=== PATIENT | male | born 1945 | race Caucasian/White ===

== ENCOUNTER 2016-10-21 10:50 | Inpatient (IN) | payer MEDICARE, OTHER ==
[~2016-10-21] VITALS: Ht 180.3 cm; Wt 65.9 kg
[~2016-10-21 10:50] MED LIST: ASPIR-LOW81 MG PO; CLOPIDOGREL PO; LISINOPRIL10 MG PO
[2016-10-27] MEDS ORDERED: LIPITOR 40MG TA40 MG PO (08:25)
[2016-10-27] MEDS ORDERED: ELIQUIS 5MG PO (08:26)
[2016-10-27] MEDS ORDERED: MULTIPLE VITAMI1 CAP PO (08:27)
[2016-10-27] MEDS ORDERED: TOPROL XL 50MG50 MG PO (08:27)
[2016-10-27] MEDS ORDERED: BETAPACE 120MG120 MG PO (08:27)
[2016-10-27] MEDS ORDERED: RT SPIRIVA18 MCG IH (08:28)
[2016-10-27] MEDS ORDERED: NORCO 325 MG-51 TAB PO (08:29)
[2016-10-27] MEDS ORDERED: RESTORIL 1515 MG/CAP PO (08:29)
[2016-10-27] MEDS ORDERED: VENTOLIN0.09 MG IH (08:30)
[2016-10-27 08:54] LABS: BASO % 0.5 % (0.0-2.0); EOS # 0.2 (0.0-0.7); EOS % 3.4 % (0-4.0); GRAN # 3.3 (1.4-6.5); GRAN % 55.8 % (42.2-75.2); HEMATOCRIT 44.1 % (42.0-52.0); HEMOGLOBIN 15.2 g/dl (13.5-18.0); LYMPH # 1.5 (1.2-3.4); LYMPH % 25.1 % (20.0-51.0); MEAN CELL VOLUME 94 fl (80.0-100.0); MEAN CORPUSCULAR HEMOGLOBIN 32 pg (27.0-31.0); MEAN CORPUSCULAR HGB CONC 35 g/dl (33.0-37.0); MEAN PLATELET VOLUME 9.8 fl (7.4-10.4); MONO # 0.9 (0.1-0.6); MONO % 14.9 % (1.7-9.3); PLATELET COUNT 206 K/mm3 (130-400); RED BLOOD COUNT 4.71 M/mm3 (4.20-5.60); REDCELL DISTRIBUTION WIDTH-CV 12.2 % (11.5-14.5); WHITE BLOOD COUNT 5.9 K/mm3 (4.8-10.8)
[2016-10-27 08:55] VITALS: BP 129/76; PULSE 98; TEMP 97.9
[2016-10-27 09:11] LABS: ADJUSTED CALCIUM 9.1 mg/dL (8.4-10.2); ALBUMIN 4.1 gm/dL (3.5-5.0); CALCIUM 9.2 mg/dL (8.4-10.2); CREATININE, serum 0.8 mg/dL (0.66-1.25); MAGNESIUM 1.7 mg/dL (1.6-2.3); POTASSIUM 4.3 mmol/L (3.4-5.0); TOTAL PROTEIN 7.6 gm/dL (6.4-8.2)
[2016-10-27 09:13] LABS: INR 1.9 (0.8-3.0); PROTHROMBIN TIME 21.1 SECONDS (9.7-12.8)
[2016-10-27 11:39] VITALS: BP 118/67; PULSE 55; TEMP 98.7
[2016-10-27 15:32] VITALS: BP 138/92; PULSE 62; TEMP 97.8
[2016-10-27 20:59] VITALS: BP 141/92; PULSE 118; TEMP 98.5
[2016-10-28] VITALS (7 sets, daily range): BP systolic 111–155; BP diastolic 62–99; PULSE 53–114; TEMP 97.2–98.3
[2016-10-28 06:53] LABS: INR 2.9 (0.8-3.0); PROTHROMBIN TIME 33.7 SECONDS (9.7-12.8)
[2016-10-28 06:59] LABS: ADJUSTED CALCIUM 9.3 mg/dL (8.4-10.2); ALBUMIN 3.2 gm/dL (3.5-5.0); BILIRUBIN,TOTAL 1.1 mg/dL (0.0-1.0); CALCIUM 8.7 mg/dL (8.4-10.2); CREATININE, serum 0.72 mg/dL (0.66-1.25); POTASSIUM 3.9 mmol/L (3.4-5.0); TOTAL PROTEIN 6.3 gm/dL (6.4-8.2)
[2016-10-28 18:26] LABS: INR 1.7 (0.8-3.0); PROTHROMBIN TIME 19.3 SECONDS (9.7-12.8)
[2016-10-29 03:51] VITALS: BP 141/86; PULSE 108; TEMP 98
[2016-10-29 08:54] VITALS: BP 102/75; PULSE 89; TEMP 98
[2016-10-29 12:18] VITALS: BP 120/88; PULSE 111; TEMP 98.6
[2016-10-29 17:13] VITALS: BP 145/77; PULSE 115; TEMP 98
[2016-10-29 19:50] VITALS: BP 179/100; PULSE 107; TEMP 97.8
[2016-10-29 22:40] VITALS: BP 121/57; BP 154/97; PULSE 74; PULSE 86; TEMP 98.3
[2016-10-30 03:34] VITALS: BP 174/98; PULSE 103; TEMP 98.5
[2016-10-30 04:37] VITALS: BP 141/90
[2016-10-30 07:50] VITALS: BP 143/102; PULSE 105; TEMP 97.6
[2016-10-30 11:29] VITALS: BP 177/122; PULSE 102
[2016-10-30 15:32] VITALS: BP 152/95; PULSE 84; TEMP 98.4
[2016-10-30 21:06] VITALS: BP 159/106; PULSE 91; TEMP 97.5
[2016-10-31 00:23] VITALS: BP 112/72; PULSE 71; TEMP 97.8
[2016-10-31 04:30] VITALS: BP 111/78; PULSE 100; TEMP 97.6
[2016-10-31 08:18] VITALS: BP 127/77; PULSE 95; TEMP 97.2
[2016-10-31] MEDS ORDERED: NORVASC 10MG10 MG PO (10:40)
[2016-10-31] MEDS ORDERED: XARELTO20 MG PO (10:41)
[2016-10-31] MEDS ORDERED: PACERONE400 MG PO (10:43)
[2016-10-31] MEDS ORDERED: CORDARONE200 MG/TAB PO (10:43)
== END 2016-10-31 12:01 | disposition home or self-care (01) | DRG 260 ==
LOC: MEDICAL 10-27 05:42
PROVIDERS: Internal Medicine Cardiovascular Disease; Nurse Practitioner Family
PROC: 0JH602Z Insertion of Monitoring Device into Chest Subcutaneous Tissue and Fascia, Open Approach (ICD-10-PCS; principal; 2016-10-30)
DX: I48.0 Paroxysmal atrial fibrillation (principal); E43 Unspecified severe protein-calorie malnutrition; E87.1 Hypo-osmolality and hyponatremia; J44.9 Chronic obstructive pulmonary disease, unspecified; I10 Essential (primary) hypertension; F17.210 Nicotine dependence, cigarettes, uncomplicated; Z86.718 Personal history of other venous thrombosis and embolism; Z68.20 Body mass index [BMI] 20.0-20.9, adult
CPT/HCPCS: 99233-AI

== ENCOUNTER 2017-01-05 09:59 | Day surgery (SDC) | payer MEDICARE, OTHER ==
[2017-01-05] VITALS (7 sets, daily range): BP systolic 123–156; BP diastolic 70–97; PULSE 51–119; TEMP 98.2–98.5
[~2017-01-05] VITALS: Ht 180.3 cm; Wt 61.8 kg
[~2017-01-05 09:59] MED LIST changes: +BETAPACE 120MG120 MG PO; +CORDARONE200 MG/TAB PO; +ELIQUIS 5MG PO; +LIPITOR 40MG TA40 MG PO; +MULTIPLE VITAMI1 CAP PO; +NORCO 325 MG-51 TAB PO; +NORVASC 10MG10 MG PO; +PACERONE400 MG PO; +RESTORIL 1515 MG/CAP PO; +RT SPIRIVA18 MCG IH; +TOPROL XL 50MG50 MG PO; +VENTOLIN0.09 MG IH; +XARELTO20 MG PO
[2017-01-05 10:59] LABS: HEMATOCRIT 39.2 % (42.0-52.0); HEMOGLOBIN 13.5 g/dl (13.5-18.0); MEAN CELL VOLUME 96 fl (80.0-100.0); MEAN CORPUSCULAR HEMOGLOBIN 33 pg (27.0-31.0); MEAN CORPUSCULAR HGB CONC 34 g/dl (33.0-37.0); MEAN PLATELET VOLUME 9.3 fl (7.4-10.4); PLATELET COUNT 223 K/mm3 (130-400); RED BLOOD COUNT 4.09 M/mm3 (4.20-5.60); REDCELL DISTRIBUTION WIDTH-CV 13.4 % (11.5-14.5); WHITE BLOOD COUNT 6.6 K/mm3 (4.8-10.8)
[2017-01-05 11:08] LABS: INR 1.2 (0.8-3.0); PROTHROMBIN TIME 12.8 SECONDS (9.7-12.8)
[2017-01-05 11:16] LABS: CALCIUM 8.7 mg/dL (8.4-10.2); CREATININE, serum 0.67 mg/dL (0.66-1.25); POTASSIUM 4.2 mmol/L (3.4-5.0)
[2017-01-05] MEDS ORDERED: NORCO 325 MG-7.1 TAB PO (11:29)
[2017-01-05] MEDS ORDERED: ASPIRIN E.C. 8181 MG PO (11:31)
[2017-01-05] MEDS ORDERED: VITAMIN D31000 IU PO (11:32)
[2017-01-05] MEDS ORDERED: STIOLTO RESPIMAT4 GM IH (11:34)
[2017-01-05] MEDS ORDERED: NEURONTIN300 MG/CAP PO (11:36)
[2017-01-05] MEDS ORDERED: TRIAMCINOLONE A15 GM TP (11:37)
[2017-01-06 02:30] VITALS: BP 135/84; PULSE 74; TEMP 98.8
[2017-01-06 07:43] VITALS: BP 139/93; PULSE 97; TEMP 97.6
[2017-01-06 11:23] VITALS: BP 113/75; PULSE 107; TEMP 98.5
[2017-01-06] MEDS ORDERED: CEPHALEXIN500 M1 PO (13:05)
== END 2017-01-06 14:24 | disposition home or self-care (01) ==
LOC: COL.CAR 09:59 → MEDICAL 15:30 → COL.CAR 01-06 14:24
PROVIDERS: Internal Medicine Cardiovascular Disease
DX: I48.0 Paroxysmal atrial fibrillation (principal); I48.3 Typical atrial flutter; I10 Essential (primary) hypertension; J44.9 Chronic obstructive pulmonary disease, unspecified; I73.9 Peripheral vascular disease, unspecified; E78.5 Hyperlipidemia, unspecified; Z91.81 History of falling; Z72.0 Tobacco use
CPT/HCPCS: OP; C1769; C1785; C1898; J0690; J2250; J3010; J7030

== ENCOUNTER → 2017-11-10 | Outpatient (CLI) | payer MEDICARE, OTHER ==
[~2017-11-10] VITALS: Ht 180.3 cm; Wt 63.2 kg
[~2017-11-10] MED LIST changes: +APRESOLINE 10MG10 MG PO; +ASPIRIN E.C. 8181 MG PO; +CARDIZEM CD 18180 MG PO; +CEPHALEXIN500 M1 PO; +COUMADIN 2MG2 MG/TAB PO; +KLOR-CON 1010 MEQ PO; +LASIX 20MG TABL20 MG PO; +LEXAPRO 5MG5 MG PO; +NEURONTIN300 MG/CAP PO; +NORCO 325 MG-101 TAB PO; +NORCO 325 MG-7.1 TAB PO; +NYSTATIN CREAM15 GM TP; +PROAIR HFA0.09 MG/AC IH; +STIOLTO RESPIMAT4 GM IH; +TRIAMCINOLONE A15 GM TP; +VITAMIN D31000 IU PO
[2017-11-10 09:51] VITALS: BP 134/88; PULSE 98
[2017-11-10 10:46] LABS: INR 1.3 (0.8-3.0); PROTHROMBIN TIME 14.9 SECONDS (9.7-12.8)
[2017-11-10 11:40] VITALS: BP 146/90; PULSE 69
[2017-11-10 11:45] VITALS: BP 156/95; PULSE 63
[2017-11-10 11:50] VITALS: BP 152/93; PULSE 69
[2017-11-10 11:55] VITALS: BP 152/91; PULSE 69
== END ==
LOC: COL.RAD 09:16
PROVIDERS: Radiology Diagnostic Radiology
DX: R91.1 Solitary pulmonary nodule (principal); I27.20 Pulmonary hypertension, unspecified; Z87.891 Personal history of nicotine dependence; Z95.0 Presence of cardiac pacemaker; Z98.890 Other specified postprocedural states; Z98.1 Arthrodesis status

== ENCOUNTER 2019-08-25 08:58 | Outpatient (CLI) | payer MEDICARE, OTHER ==
[~2019-08-25] VITALS: Ht 180.3 cm; Wt 59.5 kg
[2019-08-25] VITALS (13 sets, daily range): BP systolic 115–153; BP diastolic 62–89; PULSE 66–76
[~2019-08-25 08:58] MED LIST changes: +CARDIZEM CD 24240 MG PO; +ROBAXIN 75750 MG/TAB PO; +RT ADVAIR 228 DISKUS IH
[2019-08-25 09:25] LABS: INR 1.2 (0.8-3.0); PROTHROMBIN TIME 13.6 SECONDS (9.7-12.8)
--- NOTE | 2019-08-25 09:45 | NUR ---
Pt transported to CT per wheelchair. Pt postitioned supine on ct table, monitors applied and O2 on at 2l/nc.
--- NOTE | 2019-08-25 10:00 | NUR ---
Specimens obtained by Dr Lubin and placed in formalin. Specimen labeled.
--- NOTE | 2019-08-25 13:06 | NUR ---
Discharge instructions given to pt.Pt verbalizes understanding.INT removed,catheter tip intact.Pt escorted out via wheelchair and assisted into car.This nurse watched Pt pull down several stalls and observed them attempt to switch drivers.This nurse approached car and educated pt again on the safety of having someone else drive.Per 's report she has a drivers licence and does drive.per her report "he just wanted to drive." Pt agreed to let drive.This nurse observed vehicle leaving hospital property with pts in sweeper driver seat.
== END 2019-08-25 13:22 | disposition home or self-care (01) ==
LOC: COL.RAD 08:58
PROVIDERS: Internal Medicine Pulmonary Disease
DX: R91.1 Solitary pulmonary nodule (principal)
CPT/HCPCS: J2250; J3010

== ENCOUNTER 2019-10-11 07:01 | Day surgery (SDC) | payer MEDICARE, OTHER ==
[~2019-10-11] VITALS: Ht 180.3 cm; Wt 59.1 kg
[2019-10-11] MEDS ORDERED: LASIX 20MG TABL20 MG PO (08:01)
[2019-10-11] MEDS ORDERED: ROBAXIN 75750 MG/TAB PO (08:02)
[2019-10-11] MEDS ORDERED: NYSTATIN100000 U/1 TOP (08:02)
[2019-10-11 08:34] LABS: INR 4.2 (0.8-3.0)
[2019-10-11 08:37] LABS: PROTHROMBIN TIME 51.1 SECONDS (9.7-12.8)
--- NOTE | 2019-10-11 08:40 | NUR ---
The patient's PT-P has resulted with a critical high level on both the INR and the Protime. Dr. Shepherd as notified of the results by Alli Ramirez RN and wants to cancel today's procedure and reschedule for 10/13/2019 at 0830. The patient is not to resume his coumadin until after the procedure on . The patient's IV to his right hand was removed and a pressure dressing was applied to the site. The patient is going to get dressed and notify the staff when he is ready to be escorted out.
--- NOTE | 2019-10-11 09:00 | NUR ---
The patient was escorted out via wheelchair to a private vehicle by JAZMIN Chacon. The patient's belongings were sent with him and he and his were instructed on his new procedure date and time. They verbalized wanting a later time on that date and the nurse provided them with the office number to call and see if a later time would work for the doctor.
[2019-10-11 10:23] VITALS: BP 100/58; PULSE 78; TEMP 97.8
== END 2019-10-11 09:00 | disposition home or self-care (01) ==
LOC: SDCO 07:01
PROVIDERS: Internal Medicine Pulmonary Disease
DX: C34.90 Malignant neoplasm of unspecified part of unspecified bronchus or lung (principal); Z53.09 Procedure and treatment not carried out because of other contraindication; R79.89 Other specified abnormal findings of blood chemistry; I48.91 Unspecified atrial fibrillation; Z79.01 Long term (current) use of anticoagulants; I27.20 Pulmonary hypertension, unspecified; J44.9 Chronic obstructive pulmonary disease, unspecified; Z87.891 Personal history of nicotine dependence; Z79.899 Other long term (current) drug therapy; Z79.82 Long term (current) use of aspirin; Z88.8 Allergy status to other drugs, medicaments and biological substances
CPT/HCPCS: J7120

== ENCOUNTER 2019-10-14 09:09 | Day surgery (SDC) | payer MEDICARE, OTHER ==
[2019-10-14] VITALS (7 sets, daily range): BP systolic 113–124; BP diastolic 65–69; PULSE 69–70; TEMP 98–99.9
[~2019-10-14] VITALS: Ht 180.3 cm; Wt 58.9 kg
[~2019-10-14 09:09] MED LIST changes: +NYSTATIN100000 U/1 TOP
[2019-10-14 10:06] LABS: INR 1.6 (0.8-3.0); PROTHROMBIN TIME 18.5 SECONDS (9.7-12.8)
--- NOTE | 2019-10-14 11:20 | NUR ---
Pt to [facility] via cart from ENDO. Pt drowsy, but awake. O2 on at 3 liters via nasal canula. Pt reports feeling "pressure" in chest, but after O2 increased to 3 liters pt reports that feeling "better." Will continue to monitor. Call light within reach.
--- NOTE | 2019-10-14 11:35 | NUR ---
Pt sleeping. Respirations even and unlabored. Will continue to monitor.
--- NOTE | 2019-10-14 11:50 | NUR ---
Pt continues to rest. Denies pain or shortness of breath. O2 decreased to 2 liters via nasal canula. Will continue to monitor. Call light within reach.
--- NOTE | 2019-10-14 12:05 | NUR ---
Pt sleeping. Respirations even and unlabored. O2 decreased to 1 liter via nasal canula. Will continue to monitor.
--- NOTE | 2019-10-14 12:20 | NUR ---
O2 discontinued to see how pt will do without O2. Pt did not bring his portable O2 with him and has a [address] Pt request to sit up. Pt assisted into wheel chair. Pt denies futher needs. Will continue to monitor.
--- NOTE | 2019-10-14 12:30 | NUR ---
O2 sats dipping down to 82-83% on room air. O2 placed on pt at 1 liter via nasal canula. O2 sats jumped up to 88-90% quickly. Will continue to monitor. Encouraged pt to wear O2 at home today. Pt voices understanding. Call light within reach.
--- NOTE | 2019-10-14 12:50 | NUR ---
Pt maintaining O2 sat of 87-90% on room air for 15 minutes. Discharge instructions reviewed. Pt voices understanding. IV site discontinued with all parts intact. Will assist pt with dressing.
--- NOTE | 2019-10-14 13:05 | NUR ---
Pt escorted to private car via wheel chair. Pt accompanied home by his .
== END 2019-10-14 13:05 | disposition home or self-care (01) ==
LOC: SDCO 09:09
PROVIDERS: Internal Medicine Pulmonary Disease
DX: C34.12 Malignant neoplasm of upper lobe, left bronchus or lung (principal); J18.9 Pneumonia, unspecified organism; B19.20 Unspecified viral hepatitis C without hepatic coma; J44.9 Chronic obstructive pulmonary disease, unspecified; I73.9 Peripheral vascular disease, unspecified; I07.1 Rheumatic tricuspid insufficiency; I48.91 Unspecified atrial fibrillation; Z88.8 Allergy status to other drugs, medicaments and biological substances; Z91.040 Latex allergy status; I27.20 Pulmonary hypertension, unspecified; F17.210 Nicotine dependence, cigarettes, uncomplicated; Z79.01 Long term (current) use of anticoagulants
CPT/HCPCS: J2704; J7120

== ENCOUNTER → 2020-09-21 | Outpatient (CLI) | payer MEDICARE, OTHER ==
[~2020-09-21] MED LIST changes: +PREDNISONE20 MG PO
== END ==
LOC: COL.LAB 10:22
DX: Z01.818 Encounter for other preprocedural examination (principal); Z20.822 Contact with and (suspected) exposure to COVID-19

== ENCOUNTER 2021-03-21 11:52 | Emergency (ER) | payer MEDICARE, OTHER ==
[~2021-03-21] VITALS: Ht 180.3 cm; Wt 54.8 kg
[~2021-03-21 11:52] MED LIST changes: -PREDNISONE20 MG PO
[2021-03-21 12:15] VITALS: TEMP 98.1
[2021-03-21 12:51] LABS: BASO % 0.4 % (0.0-2.0); EOS # 0.1 (0.0-0.7); EOS % 1.3 % (0-4.0); GRAN # 2.7 (1.4-6.5); GRAN % 59.4 % (42.2-75.2); HEMATOCRIT 37.5 % (42.0-52.0); HEMOGLOBIN 13.3 g/dl (13.5-18.0); MEAN CELL VOLUME 94 fl (80.0-100.0); MEAN CORPUSCULAR HEMOGLOBIN 33 pg (27.0-31.0); MEAN CORPUSCULAR HGB CONC 36 g/dl (33.0-37.0); MONO # 0.7 (0.1-0.6); MONO % 15.7 % (1.7-9.3); PLATELET COUNT 142 K/mm3 (130-400); REDCELL DISTRIBUTION WIDTH-CV 11.7 % (11.5-14.5)
[2021-03-21 12:54] LABS: INR 2.9 (0.8-3.0)
[2021-03-21 12:56] LABS: PARTIAL THROMBOPLASTIN TIME 44.1 SECONDS (26.0-37.0)
[2021-03-21 13:16] LABS: ALBUMIN 3.9 gm/dL (3.4-4.8); BILIRUBIN,TOTAL 1.1 mg/dL (0.2-1.2); CALCIUM 9.7 mg/dL (8.4-10.2); CREATININE, serum 0.78 mg/dL (0.72-1.25); POTASSIUM 4.1 mmol/L (3.5-4.5); TOTAL PROTEIN 7.4 gm/dL (6.2-8.1)
[2021-03-21 13:22] LABS: TROPONIN-I 0.031 ng/mL (0.00-0.033)
[2021-03-21] MEDS ORDERED: PREDNISONE20 MG PO (13:51)
[2021-03-21 14:23] VITALS: BP 121/80; PULSE 64
== END 2021-03-21 14:23 | disposition home or self-care (01) ==
LOC: COL.ER 11:52
PROVIDERS: Emergency Medicine
DX: J44.1 Chronic obstructive pulmonary disease with (acute) exacerbation (principal); I48.91 Unspecified atrial fibrillation; I11.0 Hypertensive heart disease with heart failure; I50.9 Heart failure, unspecified; I73.9 Peripheral vascular disease, unspecified; Z88.8 Allergy status to other drugs, medicaments and biological substances; Z79.01 Long term (current) use of anticoagulants; Z79.899 Other long term (current) drug therapy; Z79.82 Long term (current) use of aspirin
CPT/HCPCS: J1940; J2930